=== PATIENT | female | born 1960 | race Two or more races ===

== ENCOUNTER 2017-07-07 08:40 | Emergency (ER) | payer OTHER ==
[2017-07-07 08:54] VITALS: BP 133/71; PULSE 107; TEMP 98.8; BMI 29.9
[2017-07-07] MEDS ORDERED: IBUPROFEN 400 MG TABLET (FP) PO ONE ×2 (10:08→10:09)
--- NOTE | 2017-07-07 10:08 | PDOC ---
History of Present Illness - General Chief Complaint: Cold Symptoms Stated Complaint: THROAT PAIN Time Seen by Provider: 07/07/17 09:50 Past History - Past Medical History Allergies/Adverse Reactions: Allergies Allergy/AdvReac Type Severity Reaction Status Date / Time No Known Allergies Allergy Verified 07/07/17 08:50 Home Medications: Ambulatory Orders Glyburide/Metformin HCl [Glucovance 5-500 mg Tablet] 1 each PO BID 02/12/14 Aspirin [ASA -] 81 mg PO DAILY 05/01/15 Insulin Glargine,Hum.rec.anlog [Lantus (10mL VIAL) -] 30 units SQ HS 05/01/15 Multivitamins [Multivit ([facility] Formul[facility])] 1 tab PO DAILY 05/01/15 Ramipril 5 mg PO DAILY 05/01/15 Oseltamivir Phosphate [Tamiflu] 75 mg PO BID #10 capsule 07/07/17 COPD: No Diabetes: Yes - Immunization History Immunization Up to Date: Yes - Suicide/Smoking/Psychosocial Hx Smoking History: Current some day smoker Have you smoked in the past 12 months: Yes Number of Cigarettes Smoked Daily: 1 Information on smoking cessation initiated: No Hx Alcohol Use: No Drug/Substance Use Hx: No Substance Use Type: None *Physical Exam - Vital Signs Last Vital Signs Temp Pulse Resp BP Pulse Ox 98.8 F 107 H 19 133/71 99 07/07/17 08:50 07/07/17 08:50 07/07/17 08:50 07/07/17 08:50 07/07/17 08:50 *DC/Admit/Observation/Transfer Diagnosis at time of Disposition: Flu-like symptoms - Discharge Dispostion Disposition: HOME Condition at time of disposition: Stable Admit: No - Referrals Referrals: Galen Navarrete MD [Staff Physician] - - Patient Instructions Printed Discharge Instructions: DI for Influenza -- Adult Additional Instructions: Your strep test was negative today. Given your symptoms, we will treat you empirically for the flu. Please take the Tamiflu twice a day for 5 days. Drink plenty of fluids. You may take Motrin or Tylenol as needed for pain or aches. Get plenty of rest. Follow-up with her primary care doctor in 1 week. Return to the emergency department if you have worsening pain despite treatment , difficulty breathing, shortness of breath, or any changes in your symptoms. - Post Discharge Activity Forms/Work/School Notes: Back to Work
== END 2017-07-07 11:02 | disposition home or self-care (01) ==
LOC: JERFT 08:40
DX: J11.1 Influenza due to unidentified influenza virus with other respiratory manifestations (principal); E11.9 Type 2 diabetes mellitus without complications; Z79.4 Long term (current) use of insulin; Z79.82 Long term (current) use of aspirin; F17.210 Nicotine dependence, cigarettes, uncomplicated
CPT/HCPCS: 87070; 87430; 99281-25

== ENCOUNTER 2017-07-28 00:30 | Emergency (ER) | payer OTHER ==
[2017-07-28 02:09] VITALS: BP 130/77; PULSE 89; TEMP 98.2; BMI 28.1
--- NOTE | 2017-07-28 03:00 | PDOC ---
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 The patient states she was administering medications to the patient when he coughed directly into her face. The patient reports she decided to come to the ED for evaluation of the exposure. She denies recent fevers, chills, headache or dizziness. She denies recent nausea, vomit, diarrhea or constipation. She denies recent chest pain or shortness of breath. Allergies: NKA <Nathen Pan - Last Filed: 07/28/17 03:04> - General History Source: Patient <LuizBoogie mason - Last Filed: 08/01/17 19:18> - General Chief Complaint: Blood/Body Fluid Exposure [facility] Stated Complaint: EXPOSURE/WORK RELATED Time Seen by Provider: 07/28/17 02:40 Past History <Nathen Pan - Last Filed: 07/28/17 03:04> - Past Medical History COPD: No Diabetes: Yes - Immunization History Immunization Up to Date: Yes - Suicide/Smoking/Psychosocial Hx Smoking History: Never smoked Have you smoked in the past 12 months: Yes Number of Cigarettes Smoked Daily: 1 Information on smoking cessation initiated: No Hx Alcohol Use: No Drug/Substance Use Hx: No Substance Use Type: None <Boogie Weaver - Last Filed: 08/01/17 19:18> - Past Medical History Allergies/Adverse Reactions: Allergies Allergy/AdvReac Type Severity Reaction Status Date / Time No Known Allergies Allergy Verified 07/07/17 08:50 Home Medications: Ambulatory Orders Glyburide/Metformin HCl [Glucovance 5-500 mg Tablet] 1 each PO BID 02/12/14 Aspirin [ASA -] 81 mg PO DAILY 05/01/15 Insulin Glargine,Hum.rec.anlog [Lantus (10mL VIAL) -] 30 units SQ HS 05/01/15 Multivitamins [Multivit ([facility] Form[facility])] 1 tab PO DAILY 05/01/15 Ramipril 5 mg PO DAILY 05/01/15 Oseltamivir Phosphate [Tamiflu] 75 mg PO BID #10 capsule 07/07/17 Review of Systems - Review of Systems Comments:: 07/28/17 03:05 CONSTITUTIONAL: Absent: fever, no chills, no fatigue EYES: Absent: visual changes ENT: Absent: ear pain, no sore throat CARDIOVASCULAR: Absent: chest pain, no palpitations RESPIRATORY: Absent: cough, no SOB GI: Absent: abdominal pain, no nausea, no vomiting, no constipation, no diarrhea GENITOURINARY: Absent: dysuria, no frequency, no hematuria MUSKULOSKELETAL: Absent: back pain, no arthralgia, no myalgia SKIN: Absent: rash NEURO: Absent: headache <Nathen Pan - Last Filed: 07/28/17 03:04> *Physical Exam - Vital Signs Last Vital Signs Temp Pulse Resp BP Pulse Ox 98.2 F 89 130/77 100 07/28/17 01:20 07/28/17 01:20 07/28/17 01:20 07/28/17 01:20 - Physical Exam Comments: 07/28/17 03:05 GENERAL: Well-appearing, well-nourished. No apparent distress. HEENT: Normocephalic, atraumatic. PERRL, EOM intact. CARDIOVASCULAR: Normal S1, S2. Regular rate and rhythm. PULMONARY: Clear to auscultation bilaterally. ABDOMEN: Soft, non-distended, non-tender. EXTREMITIES: Normal ROM in all four extremities. No gross deformities. SKIN: Warm, dry. No rash NEUROLOGICAL: No focal neurological deficits. <Nathen Pan - Last Filed: 07/28/17 03:04> - Vital Signs Last Vital Signs Temp Pulse Resp BP Pulse Ox 98.2 F 89 130/77 100 07/28/17 01:20 07/28/17 01:20 07/28/17 01:20 07/28/17 01:20 <Boogie Weaver - Last Filed: 08/01/17 19:18> Medical Decision Making - Medical Decision Making 08/01/17 19:18 Dr. Weaver: The scribe's documentation has been prepared under my direction and personally reviewed by me in its entirery. I confirm that the note above accurately reflects all work, treatment, procedures, and medical decision making performed by me. <Boogie Weaver Filed: 08/01/17 19:18> *DC/Admit/Observation/Transfer - Attestations Scribe Attestion: 07/28/17 03:05 Documentation prepared by Nathen Pan, acting as biomedical engineering aide for Boogie Weaver MD. <Nathen Pan - Last Filed: 07/28/17 03:04> - Discharge Dispostion Admit: No <Boogie Weaver - Last Filed: 08/01/17 19:18> Diagnosis at time of Disposition: Patient exposure to body fluids - Discharge Dispostion Disposition: HOME Condition at time of disposition: Stable - Referrals Referrals: ON STAFF,NOT [Primary Care Provider] - - Patient Instructions Printed Discharge Instructions: How to Handle Body Fluid Exposure -- Healthcare Worker Additional Instructions: Please follow up with employee health on Monday. - Post Discharge Activity Forms/Work/School Notes: Back to Work
[2017-07-28 03:27] LABS: BASO % 0.6 % (0-2.0); EOS % 2.6 % (0-4.5); HEMATOCRIT 35.7 % (32.4-45.2); HEMOGLOBIN 11.9 GM/dL (10.7-15.3); MCH 25.5 pg (25.7-33.7); MCHC 33.4 g/dl (32.0-36.0); MEAN CELL VOLUME 76.3 fl (80-96); MEAN PLT VOLUME 8.9 fl (7.5-11.1); MONO % 6.8 % (3.8-10.2); PLATELET COUNT 263 K/MM3 (134-434); RBC 4.68 M/mm3 (3.60-5.2); RDW 13.2 % (11.6-15.6); WHITE BLOOD COUNT 9.8 K/mm3 (4.0-10.0)
[2017-07-28 03:54] LABS: ALBUMIN 3.4 g/dl (3.4-5.0); ANION GAP 11 (8-16); BLOOD UREA NITROGEN 18 mg/dL (7-18); CALCIUM 8.9 mg/dL (8.5-10.1); CHLORIDE 103 mmol/L (98-107); CO2 24 mmol/L (21-32); CREATININE 0.7 mg/dL (0.55-1.02); GLUCOSE,RANDOM 218 mg/dL (74-106); POTASSIUM 4.3 mmol/L (3.5-5.1); SGOT/AST 17 U/L (15-37); SGPT/ALT 20 U/L (12-78); SODIUM 138 mmol/L (136-145)
[2017-07-28 03:56] LABS: ALK PHOS 73 U/L (45-117); BILIRUBIN,TOTAL 0.2 mg/dL (0.2-1.0); TOT PROT 7.4 g/dl (6.4-8.2)
--- NOTE | 2017-07-28 07:24 | PDOC ---
Patient Follow-up (Call Back) - Post ED Follow - Up Condition at time of discharge: Stable Disposition at time of original discharge: HOME Reason for Call Back: Radiology (7:10 ( 07/28/17) Radiologist called and spoke to Dr. Madrigal regarding new findings on CXR for nodular density in thoracic vertebral body concerning for malignancy.) - Disposition Additional Instructions/Notes: 7:10 ( 07/28/17) Radiologist called and spoke to Dr. Madrigal regarding new findings on CXR for nodular density in thoracic vertebral body concerning for malignancy. 7:20 AM ( 07/28/17) Dr. Leyva called pt. at home number [phone]. I left message requesting that pt. call ED back at [phone]. 8:06: Called pt. at home number and left message advising call back to ED to discuss radiograph findings.
[2017-08-01 08:07] LABS: FIBROSIS SCORE. 0.02 (0.00-0.21); HCV ALPHA 2 MACRO CHART 176 mg/dL (110-276); HCV GGT 12 IU/L (0-60); NECRO.INFLAM ACT.SCORE 0.05 (0.00-0.17); NECROINFLAM. ACTIVITY GRADE A0-No activity (.)
[2017-08-05 00:11] LABS: HEPATITIS E IgG Negative (Negative)
== END 2017-07-28 04:42 | disposition home or self-care (01) ==
LOC: JER 00:30
DX: Z77.21 Contact with and (suspected) exposure to potentially hazardous body fluids (principal); X58.XXXA Exposure to other specified factors, initial encounter; Y93.F9 Activity, other caregiving; Y92.239 Unspecified place in hospital as the place of occurrence of the external cause; Y99.0 Civilian activity done for income or pay; E11.9 Type 2 diabetes mellitus without complications; Z79.4 Long term (current) use of insulin; Z79.84 Long term (current) use of oral hypoglycemic drugs; E78.5 Hyperlipidemia, unspecified
CPT/HCPCS: 36415; 71046-TC-FY; 80053; 82172; 82977; 83010; 83883; 84460; 85025; 86704; 86706; 86708; 86790; 87340; 87389; 87522; 87900; 87902; 99282-25